=== PATIENT | female | born 2000 | race African-American/Black ===

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

== ENCOUNTER 2018-03-16 15:36 | Emergency (ER) | payer SELFPAY | END 2018-03-16 17:25 | disposition home or self-care (01) | LOC: ERS 15:36 | DX: N76.2 Acute vulvitis (principal) | CPT/HCPCS: 99283 ==

== ENCOUNTER 2018-04-26 23:18 | Emergency (ER) | payer SELFPAY ==
[2018-04-27] MEDS ORDERED: Adacel (T-DAP) 0.5 ML VIAL ONE (02:10)
== END 2018-04-27 02:45 | disposition home or self-care (01) ==
LOC: ERS 23:18
DX: L02.31 Cutaneous abscess of buttock (principal); Z23 Encounter for immunization
CPT/HCPCS: 10060; 87070; 87205; 90471; 90715

== ENCOUNTER 2018-05-20 20:28 | Emergency (ER) | payer SELFPAY ==
[2018-05-20 21:02] LABS: Bilirubin Negative (Negative); Blood, Urine Negative (Negative); Clarity CLEAR (Clear); Glucose, Urine (Dipstick) Negative (Negative); Leukocyte Moderate (Negative); Nitrite Negative (Negative); Protein, Urine (Dipstick) Trace mg/dL (Neg-Trace)
[2018-05-20 21:03] LABS: Pregnancy Test - Urine (BHCG) Negative (Negative); Pregu Control Background? CLEAR/WHITE (CLR/WHITE); Pregu Control Bar Appear? YES (CONTROL BAR)
[2018-05-20 21:04] LABS: Bacteria/HPF None Seen HPF (None Seen); Hyaline Casts/LPF 7-10 HYALINE CAST LPF (0-3 Hyaline)
[2018-05-20] MEDS ORDERED: Ondansetron ODT 4 MG TAB ONE (22:21)
== END 2018-05-20 23:32 | disposition home or self-care (01) ==
LOC: ERS 20:28
DX: R11.0 Nausea (principal)
CPT/HCPCS: 81003; 81015; 81025; 87086; 99283; Q0162

== ENCOUNTER 2019-03-09 15:05 | Emergency (ER) | payer SELFPAY ==
[2019-03-09 15:49] LABS: #Eosinphils 0.1 thou/uL (0.0-0.7); #Lymphocytes 2.4 thou/uL (1.20-3.40); #Monocytes 0.6 thou/uL (0.11-0.59); #Neutrophils 2.7 thou/uL (1.40-6.50); %Basophils 0.4 % (0.0-1.0); %Eosinophils 1.6 % (0.0-10.0); %Lymphocytes 42.1 % (28.0-48.0); %Monocytes 9.7 % (0.0-4.0); %Neutrophils 46.3 % (31.0-61.0); Hemoglobin 10.5 g/dL (12.0-16.0); Mean Corpuscular HGB CONC 30.2 g/dL (32.0-36.0); Mean Corpuscular Hemoglobin 23.6 pg (25.0-35.0); Mean Platelet Volume 8.5 fL (7.4-10.4); Platelet Count 255 thou/uL (130-400); RBC Distribution Width 14.8 % (11.5-14.5); Red Blood Cell (RBC) Count 4.44 mill/uL (4.00-5.20); White Blood Cell (WBC) Count 5.8 thou/uL (4.8-10.8)
[2019-03-09 16:35] LABS: Bilirubin Negative (Negative); Blood, Urine Large (Negative); Clarity CLEAR (Clear); Glucose, Urine (Dipstick) Negative (Negative); Leukocyte Negative (Negative); Nitrite Negative (Negative); Protein, Urine (Dipstick) Negative (Neg-Trace); Specific Gravity, Urine 1.011 (1.002-1.036); Urobilinogen 0.2 mg/dL (0.2-1.0)
[2019-03-09 16:36] LABS: Bacteria/HPF None Seen HPF (None Seen); Hyaline Casts/LPF 0-3 HYALINE CAST LPF (0-3 Hyaline); Pathc Cast-AUWi Flag 0.27 (0-2.49); RBC/HPF GREATER THAN 50-TNTC HPF (0-3); Squamous Epithelial 0-3 HPF (0-3); WBC/HPF 0-3 HPF (0-3)
[2019-03-09 16:38] LABS: Pregnancy Test - Urine (BHCG) Negative (Negative); Pregu Control Background? CLEAR/WHITE (CLR/WHITE); Pregu Control Bar Appear? YES (CONTROL BAR); Specific Gravity 1.011 (1.002-1.036)
== END 2019-03-09 16:50 | disposition home or self-care (01) ==
LOC: ERS 15:05
DX: N92.6 Irregular menstruation, unspecified (principal)
CPT/HCPCS: 36415; 81003; 81015; 81025; 85025; 99284

== ENCOUNTER 2020-05-15 14:23 | Emergency (ER) | payer SELFPAY | END 2020-05-15 15:49 | disposition home or self-care (01) | LOC: ERS 14:23 | DX: H92.01 Otalgia, right ear (principal) | CPT/HCPCS: 99282 ==

== ENCOUNTER 2021-09-14 11:31 | Emergency (ER) | payer SELFPAY ==
[2021-09-14 13:18] LABS: Bilirubin Negative (Negative); Blood, Urine Negative (Negative); Clarity Turbid (Clear); Glucose, Urine (Dipstick) Normal (Negative); Ketone, Urine Negative (Negative); Leukocyte 500 Leu/uL (Negative); Nitrite Negative (Negative); Protein, Urine (Dipstick) 10 mg/dL (Neg-Trace); Urobilinogen Normal mg/dL (Less than 2)
[2021-09-14 13:29] LABS: Bacteria/HPF 2+ HPF (None Seen); Trichomonas/HPF 1+ HPF (None Seen)
[2021-09-14 13:30] LABS: Pregnancy Test - Urine (BHCG) Negative (Negative); Pregu Control Background? CLEAR/WHITE (CLR/WHITE); Pregu Control Bar Appear? YES (CONTROL BAR)
[2021-09-14] MEDS ORDERED: cefTRIAXone\\ROCEPHIN 500 MG VIAL ONE (14:26)
[2021-09-14] MEDS ORDERED: Azithromycin 250 MG TAB ONE (14:26)
[2021-09-14] MEDS ORDERED: Lidocaine 1% PF 5 ML VIAL ONE (14:30)
== END 2021-09-14 15:02 | disposition home or self-care (01) ==
LOC: ERS 11:31
DX: A59.00 Urogenital trichomoniasis, unspecified (principal); M54.50 Low back pain, unspecified
CPT/HCPCS: 81003; 81015; 81025; 96372; 99283; J0696

== ENCOUNTER 2023-11-13 15:25 | Emergency (ER) | payer SELFPAY | END 2023-11-13 16:13 | disposition home or self-care (01) | LOC: ERS 15:25 | DX: L03.211 Cellulitis of face (principal) | CPT/HCPCS: 99283 ==